=== PATIENT | female | born 2000 | race Two or more races ===

== ENCOUNTER 2020-07-21 09:51 | Outpatient (REF) | payer BC, SELFPAY | END 2020-07-21 09:52 | disposition home or self-care (01) | LOC: HO.LAB 09:51 | PROVIDERS: Visit Provider Internal Medicine | DX: Z20.828 Contact with and (suspected) exposure to other viral communicable diseases (principal) | CPT/HCPCS: 87635 ==

== ENCOUNTER 2020-08-14 08:46 | Outpatient (REF) | payer BC, SELFPAY | END 2020-08-14 08:47 | disposition home or self-care (01) | LOC: HO.LAB 08:46 | PROVIDERS: Visit Provider Internal Medicine | DX: Z20.828 Contact with and (suspected) exposure to other viral communicable diseases (principal) | CPT/HCPCS: C9803; U0003 ==